=== PATIENT | female | born 1940 | race Caucasian/White ===

== ENCOUNTER → 2017-06-01 | Outpatient (CLI) | payer OTHER ==
[2017-06-01 15:01] LABS: HEMATOCRIT 36.1 % (37.0-47.0); MCH 28.6 pg (26.0-34.0); MCHC 33.3 g/dL (28.0-37.0); MCV 85.8 fL (80.0-100.0); PLATELET COUNT 418 thou/uL (150-400); RBC 4.21 mil/uL (4.20-5.00); RDW 26.5 % (10.5-14.5); WBC 7.3 thou/uL (4.0-11.0)
[2017-06-01 15:04] LABS: MANUAL DIFF YES
[2017-06-01 15:21] LABS: ALBUMIN 2.7 g/dL (3.4-5.0); CALCIUM 8.7 mg/dL (8.5-10.1); CREATININE 0.5 mg/dL (0.6-1.0); POTASSIUM 3.9 mmol/L (3.5-5.1); TOTAL BILIRUBIN 0.6 mg/dL (<0.1-1.0); TOTAL PROTEIN 6.9 g/dL (6.4-8.2)
[2017-06-01 15:23] LABS: ABSOLUTE NEUTROPHILS 6.2 thou/uL (1.4-8.2); HYPOCHROMASIA 2+; POLYCHROMASIA 1+; TOTAL CELL COUNT 100
[2017-06-01 15:24] LABS: MACROCYTES 1+; OVALOCYTES 1+
== END ==
LOC: SEN 09:40
PROVIDERS: Emergency Medicine
DX: Z01.812 Encounter for preprocedural laboratory examination (principal)